=== PATIENT | female | born 1985 ===

== ENCOUNTER 2022-03-21 08:13 | Outpatient (CLI) | payer OTHER | END 2022-03-21 23:59 | disposition home or self-care (01) | LOC: LAB 08:13 | PROVIDERS: ATTEND Obstetrics & Gynecology | DX: Z20.822 Contact with and (suspected) exposure to COVID-19 (principal) ==

== ENCOUNTER 2022-03-23 08:15 | Inpatient (IN) | payer OTHER ==
[~2022-03-23] VITALS: Ht 167.6 cm; Wt 61.2 kg
[2022-03-23] MEDS ORDERED: CEFAZOLIN 50 ML IV ONE (08:34)
[2022-03-23] MEDS ORDERED: MIDAZOLAM HCL 2 MG/2 ML VIAL ONE (08:52)
[2022-03-23] MEDS ORDERED: HYDROMORPHONE 2 MG/1 ML DISP.SYRIN ONE (08:52)
[2022-03-23] MEDS ORDERED: FENTANYL CITRATE 100 MCG/2 ML AMPUL ONE ×3 (08:52→15:18)
[2022-03-23] MEDS ORDERED: ROCURONIUM BROMIDE 50 MG/5 ML VIAL ONE (08:53)
[2022-03-23 08:59] LABS: HEMATOCRIT 40.8 % (31.2-41.9); MEAN CORPUSCULAR HEMOGLOBIN 31.3 uug (24.7-32.8); MEAN CORPUSCULAR VOLUME 91.6 fL (75.5-95.3); PLATELET COUNT (AUTO) 228 K/uL (179-408)
[2022-03-23 09:02] LABS: *BILIRUBIN,URIN NEGATIVE (NEGATIVE); *BLOOD, URINE NEGATIVE (NEGATIVE); *CLARITY,URINE CLEAR (CLEAR); *COLOR,URINE YELLOW (YELLOW); *KETONES,URINE NEGATIVE (NEGATIVE); *UROBILINOGEN,URINE 0.2 E.U./dl (NORMAL); LEUKOCYTE ESTERASE ,URINE NEGATIVE (NEGATIVE); NITRITE, URINE NEGATIVE (NEGATIVE); UGLUCOSE NEGATIVE (NEGATIVE)
[2022-03-23 09:06] LABS: *URINE HCG, QUAL NEG (NEGATIVE)
[2022-03-23 09:06] LABS: CREATININE 0.8 mg/dL (0.6-1.3); POTASSIUM 3.4 mmol/L (3.5-5.1)
[2022-03-23 09:12] LABS: BILIRUBIN,TOTAL 0.7 mg/dL (0.2-1.0)
[2022-03-23] MEDS ORDERED: LIDOCAINE 1%-EPI 1:100,000 20 ML VIAL ONE (12:02)
[2022-03-23] MEDS ORDERED: AMPICILLIN 1 G VIAL ONE (13:29)
[2022-03-23] MEDS ORDERED: BUPIVACAINE 0.25% 30 ML VIAL ONE (13:39)
[2022-03-23] MEDS ORDERED: CLINDAMYCIN PHOSPHATE 600 MG/4 ML VIAL ONE (13:42)
[2022-03-23] MEDS ORDERED: CEFAZOLIN 1 G VIAL ONE (14:46)
[2022-03-23] MEDS ORDERED: METOCLOPRAMIDE HCL 10 MG/2 ML VIAL ONE (14:46)
[2022-03-23] MEDS ORDERED: ONDANSETRON 4 MG/2 ML VIAL ONE (14:46)
[2022-03-23] MEDS ORDERED: GLYCOPYRROLATE 0.2 MG/ML VIAL ONE (14:46)
[2022-03-23] MEDS ORDERED: NEOSTIGMINE METHYLSULFATE 10 MG/10 ML VIAL ONE (14:46)
[2022-03-23] MEDS ORDERED: LIDOCAINE-MPF 2% 5 ML VIAL ONE (14:46)
[2022-03-23] MEDS ORDERED: PROPOFOL 200 MG/20 ML BOTTLE ONE (14:46)
[2022-03-23] MEDS ORDERED: MORPHINE SULFATE 4 MG/1 ML DISP.SYRIN IV ONE (16:30)
[2022-03-23 16:40] VITALS: BP 102/46
[2022-03-23] MEDS ORDERED: [UNRECOGNIZED DRUG - CODE] PO (16:51)
[2022-03-23] MEDS ORDERED: MAGNESIUM HYDROXIDE 30 ML LIQUID UDC PO PRN (17:00)
[2022-03-23] MEDS ORDERED: ACETAMINOPHEN 325 MG TABLET PO PRN (17:00)
[2022-03-23] MEDS ORDERED: ONDANSETRON 4 MG/2 ML VIAL IV PRN (17:00)
[2022-03-23] MEDS ORDERED: MORPHINE SULFATE 4 MG/1 ML DISP.SYRIN IV PRN (17:00)
[2022-03-23] MEDS ORDERED: IV 1/2NS 1000 ML 1,000 ML IV PRN (17:00)
[2022-03-23] MEDS ORDERED: ACETAMINOPHEN/CODEINE 300-30 MG TABLET PO PRN (17:00)
[2022-03-23] MEDS: IV D5LR 1,000 ML IV PRN (17:17)
[2022-03-23] MEDS: MORPHINE SULFATE 4 MG/1 ML DISP.SYRIN IV PRN ×2 (17:17→21:50)
[2022-03-23] MEDS: DOCUSATE SODIUM 100 MG CAPSULE PO SCH (17:42)
[2022-03-23 19:08] LABS: HEMATOCRIT 36.9 % (31.2-41.9); MEAN CORPUSCULAR HEMOGLOBIN 31.2 uug (24.7-32.8); MEAN CORPUSCULAR VOLUME 91.7 fL (75.5-95.3); PLATELET COUNT (AUTO) 209 K/uL (179-408)
[2022-03-23] MEDS: CEFAZOLIN 1 G in IV DEXTROSE 5% 50 ML IV SCH (20:06)
--- NOTE | 2022-03-23 21:00 | NUR ---
Ferrre cath discontinued as ordered. Patient able to void without discomfort.
[2022-03-23] MEDS: CLINDAMYCIN PHOSPHATE IV 600 MG in IV DEXTROSE 5% 100 ML IV SCH (22:13)
[2022-03-24] MEDS: MORPHINE SULFATE 4 MG/1 ML DISP.SYRIN IV PRN ×4 (02:05→20:14)
[2022-03-24] MEDS: IV D5LR 1,000 ML IV PRN ×2 (02:52→15:13)
[2022-03-24] MEDS: CEFAZOLIN 1 G in IV DEXTROSE 5% 50 ML IV SCH (04:06)
[2022-03-24 05:44] VITALS: BP 98/52
[2022-03-24] MEDS: CLINDAMYCIN PHOSPHATE IV 600 MG in IV DEXTROSE 5% 100 ML IV SCH ×2 (06:08→14:50)
[2022-03-24] MEDS: PANTOPRAZOLE SODIUM 40 MG TABLET.DR PO SCH (06:25)
--- NOTE | 2022-03-24 06:53 | NUR ---
Received patient in bed awake alert and oriented x 4. No noted resp distress. Denies chest pain. Abdominal dressing dry and intact, no noted discharge. Slept intermittently throughout the night. L hand IV site intact and patent. Needs assessed and attended to. Call light within reach.
[2022-03-24 07:19] LABS: HEMATOCRIT 33.6 % (31.2-41.9); MEAN CORPUSCULAR HEMOGLOBIN 31.4 uug (24.7-32.8); PLATELET COUNT (AUTO) 196 K/uL (179-408)
[2022-03-24 08:05] LABS: CREATININE 0.8 mg/dL (0.6-1.3); MAGNESIUM 1.7 mg/dL (1.8-2.4); POTASSIUM 3.8 mmol/L (3.5-5.1)
[2022-03-24] MEDS: DOCUSATE SODIUM 100 MG CAPSULE PO SCH ×2 (08:17→17:23)
[2022-03-24] MEDS ORDERED: MAGNESIUM OXIDE 400 MG TABLET PO ONE (09:15)
[2022-03-24] MEDS ORDERED: Medication Not On Formulary EA (Cetirizine Hcl (Zyrtec) 10 MG) PO PRN (19:00)
[2022-03-24 20:15] VITALS: BP 116/54
[2022-03-24] MEDS ORDERED: CETIRIZINE HCL 10 MG TABLET PO PRN (21:00)
[2022-03-25] MEDS: CLINDAMYCIN PHOSPHATE IV 600 MG in IV DEXTROSE 5% 100 ML IV SCH ×3 (00:11→13:57)
[2022-03-25] MEDS: MORPHINE SULFATE 4 MG/1 ML DISP.SYRIN IV PRN (00:32)
[2022-03-25 04:21] VITALS: BP 107/45
[2022-03-25] MEDS: PANTOPRAZOLE SODIUM 40 MG TABLET.DR PO SCH (06:49)
[2022-03-25 07:14] LABS: HEMATOCRIT 31.9 % (31.2-41.9); MEAN CORPUSCULAR HEMOGLOBIN 32.1 uug (24.7-32.8); MEAN CORPUSCULAR VOLUME 91.2 fL (75.5-95.3); PLATELET COUNT (AUTO) 195 K/uL (179-408)
[2022-03-25 07:17] LABS: CREATININE 0.7 mg/dL (0.6-1.3); MAGNESIUM 1.9 mg/dL (1.8-2.4); POTASSIUM 4.1 mmol/L (3.5-5.1)
[2022-03-25] MEDS: DOCUSATE SODIUM 100 MG CAPSULE PO SCH ×2 (09:20→16:54)
--- NOTE | 2022-03-25 11:20 | NUR ---
PATIENT SEEN AND EXAMINED BY DR KEYONA MANZANO WITH ORDER TO DISCHARGE PATIENT HOME TODAY AND NOTED.PATIENT IS ALERT ORIENTED AMBULATING UP AND DOWN IN THE HALLWAY MEDICATED FOR PAIN X1 AND HELPFUL PATIENT STATED HAD A BOWEL MOVEMENT THIS AM INCISION SITE LOWER ABDOMEN IS INTACT WITH STERI TRIPS AND NON ADHERENT DRESSING INTACT AND DRY ON ROOM AIR WITH NO SOB MADE COMFORTABLE.
[2022-03-25 12:03] VITALS: BP 124/71
--- NOTE | 2022-03-25 12:06 | NUR ---
CALL RECEIVED FROM DR HERNANDEZ RE PATIENTS PROGRESS STATED IT WAS OKAY TO DISCHARGE PATIENT HOME AND THAT HE WILL CALL HER CELL PHONE TO INSTRUCT HER ON THE APPOINTMENT DATE AND TIME STATED THE APPOINTMENT SHOULD BE IN ABOUT ONE WEEK PATIENT NOTIFIED.
--- NOTE | 2022-03-25 13:58 | NUR ---
PATIENT IS AWARE OF HER DISCHARGE STATED THAT HE FRIEND MINERVA WILL BE ABLE TO PICK HER UP THIS AFTERNOON.
[2022-03-25 16:52] VITALS: BP 114/46
--- NOTE | 2022-03-25 17:00 | NUR ---
PATIENT DISCHARGED PICKED UP BY HER FRIEND IN SATISFACTORY CONDITION.PATIENT INSTRUCTED TO FOLLOW UP WITH DR HERNANDEZ AND TO TAKE HER MEDICATIONS ORDERED AND SHE EXPRESSED UNDERSTANDING.INCISION CLEAN DRY AND INTACT AT THIS TIME.
== END 2022-03-25 17:00 | disposition home or self-care (01) | DRG 743 ==
LOC: DS 08:15 → MEDSURG3 16:38
PROVIDERS: ADMIT Nurse Practitioner Family; ATTEND Nurse Practitioner Family
PROC: 0DNW0ZZ Release Peritoneum, Open Approach (ICD-10-PCS; principal; 2022-03-23)
PROC: 0UB90ZZ Excision of Uterus, Open Approach (ICD-10-PCS; 2022-03-23)
PROC: 0UPD0HZ Removal of Contraceptive Device from Uterus and Cervix, Open Approach (ICD-10-PCS; 2022-03-23)
PROC: 0DN80ZZ Release Small Intestine, Open Approach (ICD-10-PCS; 2022-03-23)
PROC: 0TNB0ZZ Release Bladder, Open Approach (ICD-10-PCS; 2022-03-23)
DX: D25.9 Leiomyoma of uterus, unspecified (principal); N94.89 Other specified conditions associated with female genital organs and menstrual cycle; N73.6 Female pelvic peritoneal adhesions (postinfective); E83.42 Hypomagnesemia; E87.6 Hypokalemia
CPT/HCPCS: 36415; 83735; 84703; 85025; 85730; 86850; 86900; 86901; 97161; A4649; A4663; G0378; J0290; J0690; J1170; J2250; J2270; J2405; J2765; J3010; J3490; J7120